=== PATIENT | male | born 1950 | race African-American/Black ===

== ENCOUNTER 2020-01-07 01:31 | Observation (INO) | payer MEDICARE ==
[~2020-01-07] VITALS: Ht 177.8 cm; Wt 102.3 kg
[2020-01-07] MEDS ORDERED: LASIX40 MG PO (01:37)
[2020-01-07] MEDS ORDERED: [UNRECOGNIZED DRUG - REMARK] (01:37)
[2020-01-07] MEDS ORDERED: VISTARIL25 MG (01:39)
[2020-01-07] MEDS ORDERED: FLOMAX0.4 MG PO (01:40)
[2020-01-07] MEDS ORDERED: INVOKANA300 MG PO (01:40)
[2020-01-07] MEDS ORDERED: HYDROCHLOROTH12.5 M1 PO (01:40)
[2020-01-07] MEDS ORDERED: TRAZODONE HCL150 MG PO (01:40)
[2020-01-07] MEDS ORDERED: EXFORGE 10-3201 TAB PO (01:41)
[2020-01-07] MEDS ORDERED: GLUCOPHAGE1000 MG PO (01:41)
[2020-01-07] MEDS ORDERED: CYCLOBENZAPRINE10 MG PO (01:41)
[2020-01-07] MEDS ORDERED: CRESTOR20 MG PO (01:42)
[2020-01-07 03:01] LABS: BASOPHILS 0.1 % (0-2); EOSINOPHILS 0.1 % (0-7); HEMATOCRIT 48.4 % (42.0-54.0); HEMOGLOBIN 15.8 g/dL (13.5-17.5); IMMATURE GRANULOCYTES 0.4 % (0-5); LYMPHOCYTES 6.8 % (15-50); MCH 28.9 pg (26.0-34.0); MCHC 32.6 g/dL (31.0-37.0); MCV 88.5 fL (80.0-100.0); MEAN PLATELET VOLUME 10.5 fL (7.4-10.4); NEUTROPHILS 85.6 % (40-80); PLATELET COUNT 191 10x3/uL (130-400); RBC 5.47 10x6/uL (4.20-6.10); RDW 12.9 % (11.5-14.5); WBC 13.7 10x3/uL (4.8-10.8)
[2020-01-07 03:09] LABS: INR 1.02 (0.85-1.17); PROTIME 13.4 SECONDS (11.6-15.0)
[2020-01-07 03:22] LABS: ALBUMIN 4.3 g/dL (3.4-5.0); ANION GAP 14.3 mmol/L (8-16); BILIRUBIN - TOTAL 0.62 mg/dL (0.2-1.3); CALCIUM 10.2 mg/dL (8.5-10.1); CARBON DIOXIDE 29.6 mmol/L (21.0-32.0); CREATININE - SERUM 1.9 mg/dL (0.6-1.3); POTASSIUM - SERUM 3.9 mmol/L (3.5-5.1); PROTEIN - SERUM 8.1 g/dL (6.4-8.2)
[2020-01-07 03:27] VITALS: BP 127/75
[2020-01-07 04:00] VITALS: BP 126/74
--- NOTE | 2020-01-07 05:08 | NUR ---
BS RECHECKED 30 MIN POST 10 UNITS REGULAR INSULIN FOR BS 556. BS NOW 401. EDP NOTIFIED.
--- NOTE | 2020-01-07 05:40 | NUR ---
PT ARRIVED TO FLOOR AOX4, TRANSFERED SELF TO BED FROM STRETCHER. STATES LEFT KNEE IS FEELING BETTER. SAID HE FELL EARLIER YESTERDAY MORNING, WALKED AROUND ALL DAY ON IT AND SAT DOWN FOR DINNER AROUND 6 AND FELL ASLEEP AND UPON WAKENING IT HURT TOO BAD TO STAND. SMALL ABRASION TO LEFT KNEE. PT IS ABLE TO BEND AND MOVE LEG NOW. IV LEFT FA FINISHED NS BOLUS, NOW INFUSING NS @ 125. BREEZY ON. PT REQUESTED AND GIVEN CHAPSTICK. DENIES OTHER NEEDS AT THIS TIME. CL IN REACH, WILL CTM
--- NOTE | 2020-01-07 06:10 | NUR ---
FSBS 428, 20 UNITS GIVEN PER SS. PT STATES HE USUALLY TAKES 18 UNITS OF INSULIN PEN AT HOME
[2020-01-07 06:13] VITALS: Ht 177.8 cm; Wt 102.3 kg
[2020-01-07] MEDS ORDERED: ALPHAGAN 0.2%5 ML EACH EYE (06:23)
[2020-01-07] MEDS ORDERED: TRAVATAN Z2.5 ML EACH EYE (06:24)
[2020-01-07] MEDS ORDERED: BASAGLAR K100 UNIT/1 SC (06:28)
[2020-01-07] MEDS ORDERED: ATARAX 25 MG TA25 MG PO (06:28)
--- NOTE | 2020-01-07 07:59 | NUR ---
ALERT AND ORIENTED. LUNGS CLEAR BILATERALLY. HEART SOUNDS S1 AND S2 HEARD IN ALL [place]. SKIN INTACT WITHOUT REDNESSS. IV TO RFA PATENT WITHOUT REDNESS. DENIES NEEDS. BED LOW. FALL PRECAUTIONS IN PLACE. CALL [facility] AND PERSONAL ITEMS IN REACH. WILL CONTINUE TO MONITOR.
[2020-01-07 08:00] VITALS: BP 120/82
[2020-01-07 08:45] VITALS: BP 128/82
--- NOTE | 2020-01-07 10:45 | NUR ---
ASSISTED TO RESTROOM. BED CHANGED D/T WET. INSTRUCTED TO PULL STRING IN BATHROOM TO NOTIFY NURSE WHEN DONE. VERBALIZED UNDERSTANDING.
--- NOTE | 2020-01-07 10:50 | NUR ---
ICE APPLIED TO LEFT KNEE.
--- NOTE | 2020-01-07 12:03 | NUR ---
CALLED PHARMACY FOR PATIENT'S INVOKANA AND LANTUS. STATES WILL BRING.
--- NOTE | 2020-01-07 13:25 | NUR ---
RESTING IN BED. DENIES NEEDS. WILL CONTINUE TO MONITOR.
--- NOTE | 2020-01-07 19:00 | NUR ---
BEDSIDE REPORT RECEIVED AND CARE OF PT ASSUMED. PT LYING ON RIGHT SIDE WITH EYES CLOSED. IV TO RIGHT FA PATENT WITH NS INFUSING AT 125 ML/HR. WILL MONITOR FOR NEEDS.
--- NOTE | 2020-01-07 19:57 | NUR ---
HS MEDICATIONS GIVEN. FSBS 332 THIS CHECK REQUIRING COVERAGE WITH 12 UNITS OF INSULIN PER SLIDING SCALE. PT DECLINED SNACK AT THIS TIME.
[2020-01-08] VITALS: BP 106/61
[2020-01-08 04:00] VITALS: BP 115/78
[2020-01-08 05:42] LABS: BASOPHILS 0.2 % (0-2); EOSINOPHILS 0.6 % (0-7); HEMATOCRIT 41.6 % (42.0-54.0); HEMOGLOBIN 13.4 g/dL (13.5-17.5); IMMATURE GRANULOCYTES 0.3 % (0-5); LYMPHOCYTES 27.9 % (15-50); MCH 28.7 pg (26.0-34.0); MCHC 32.2 g/dL (31.0-37.0); MCV 89.1 fL (80.0-100.0); MEAN PLATELET VOLUME 10.2 fL (7.4-10.4); MONOCYTES 10.2 % (2-11); NEUTROPHILS 60.8 % (40-80); PLATELET COUNT 179 10x3/uL (130-400); RBC 4.67 10x6/uL (4.20-6.10); RDW 13.3 % (11.5-14.5)
[2020-01-08 05:43] LABS: WBC 8.7 10x3/uL (4.8-10.8)
[2020-01-08 06:06] LABS: ALBUMIN 3.1 g/dL (3.4-5.0); ANION GAP 13.1 mmol/L (8-16); BILIRUBIN - TOTAL 0.8 mg/dL (0.2-1.3); CALCIUM 8.4 mg/dL (8.5-10.1); CARBON DIOXIDE 26.9 mmol/L (21.0-32.0); CREATININE - SERUM 1.6 mg/dL (0.6-1.3); PROTEIN - SERUM 6.4 g/dL (6.4-8.2)
--- NOTE | 2020-01-08 06:27 | NUR ---
POTASSIUM LEVEL 3.0 THIS AM REQUIRING COVERAGE WITH 40 MEQ PO PER THE ELECTROLYTE PROTOCAL. BLOOD SUGAR 79 THIS AM...NO INSULIN REQUIRED...GAVE 4 OZ ORANGE JUICE.
[2020-01-08 07:09] LABS: ERYTHROCYTE SEDIMENTATION RATE 20 mm/hr (0-20)
--- NOTE | 2020-01-08 07:38 | NUR ---
PT LYING IN BED ASLEEP, EASILY AWAKENED FOR ASSESSMENT. IV RT FA PATENT, NO REDNESS OR SWELLING, LUNGS CTA, NO NEEDS VOICED AT THIS TIME, ASSUME PT CARE
[2020-01-08 09:00] VITALS: BP 130/94
--- NOTE | 2020-01-08 09:58 | NUR ---
PT ON CL STATES THAT DOCTOR WAS IN HIS ROOM AN HOUR AGO AND STATED HE CAN BE DC, XPLAINED TO PT THAT I HAVE NOT YET SEEN DC ORDERS AND THE DOCTOR THAT CAME IN WAS THE ORTHOPEDIC SURGEON AND WE STILL NEED TO SEE THE ADMITTING DOCTOR BEFORE PT CAN BE DC. PT VOICED UNDERSTANDING, CONTINUE WITH PLAN OF CARE
[2020-01-08 11:37] LABS: MAGNESIUM - SERUM 1.9 mg/dL (1.8-2.4); POTASSIUM - SERUM 3.9 mmol/L (3.5-5.1)
--- NOTE | 2020-01-08 13:42 | NUR ---
PT DC HOME, WENT OVER DC INSTRUCTIONS WELL APPOINTMENT FOLLOW UP, ANSWERED ALL QUESTIONS. PT IV IN RT FA DC WITH CATHETER INTACT. NO OTHER NEEDS AT THIS TIME. PT AWAITING RIDE
== END 2020-01-08 15:12 | disposition home or self-care (01) ==
LOC: D.ER 01:31 → D.MS 03:54 → OBSVTIME 03:54 → D.MS 05:53
PROVIDERS: Family Medicine; ADMIT Family Medicine; ATTEND Family Medicine
DX: M25.462 Effusion, left knee (principal); M23.8X2 Other internal derangements of left knee; E11.65 Type 2 diabetes mellitus with hyperglycemia; I10 Essential (primary) hypertension; Z72.0 Tobacco use; E66.9 Obesity, unspecified; S80.02XA Contusion of left knee, initial encounter